=== PATIENT | female | born 1955 | race Caucasian/White ===

== ENCOUNTER 2017-03-22 14:37 | Outpatient (CLI) | payer OTHER ==
--- NOTE | 2017-03-22 15:17 | DIAGNOSTIC IMAGING REPORT ---
PROCEDURE: DEXA BONE DENSITY STUDY CLINICAL INDICATION: BREAST CA,OSTEOPENIA history of adult fractures, taking vitamin D and calcium supplementation. COMPARISON: 03/23/2016 FINDINGS: LUMBAR SPINE: Bone mineral density 0.982 g/cm2, T score -0.6, normal, change from previous 5.6 percent, significant LEFT HIP: Bone mineral density 0.998 g/cm2, T score 0.5, normal change from previous 1.4 percent LEFT FEMORAL NECK: Bone mineral density 0.680 g/cm2, T score -1.5, osteopenia, change from previous 00 percent FRACTURE RISK CALCULATION ( when applicable): 10-year fracture risk of a major osteoporotic fracture 14% and of a hip fracture 1.3% (fracture probability calculated for an untreated patient). (T score greater or equal to -1.0 to: NORMAL) (T score from -1.1 to -2.4: OSTEOPENIA) (T score ess than or equal to -2.5: OSTEOPOROSIS) IMPRESSION: 1. Interval increase in bone mineral density in the lumbar spine compared to the prior study. 2. Osteopenia of the left femoral neck results in mildly elevated hip fracture risk as described. 3. No significant change in left hip bone mineral density.
== END 2017-03-22 23:00 ==
LOC: XR SRH 14:37
DX: C50.919 Malignant neoplasm of unspecified site of unspecified female breast (principal); M85.88 Other specified disorders of bone density and structure, other site

== ENCOUNTER 2017-05-05 10:04 | Outpatient (CLI) | payer MEDICARE, OTHER ==
--- NOTE | 2017-05-05 14:02 | DIAGNOSTIC IMAGING REPORT ---
PROCEDURE: MG UNILAT SCREEN-LEFT W/CAD INDICATION: Left breast screening. Personal history of right breast cancer status post mastectomy. TECHNIQUE: Standard CC and MLO views of the left breast. Computer aided detection was used. COMPARISON: 04/22/2016, 04/18/2015, 03/08/2014, 03/10/2013 FINDINGS: Moderately dense fibroglandular tissue is present. No developing densities, areas of architectural distortion, or suspicious microcalcifications. IMPRESSION: 1. Stable left breast mammograms without radiographic evidence of malignancy. RESULT CODE: 1- Negative. A. A negative report should not delay biopsy if a dominant or clinically suspicious mass is present. 10-15% of cancers are not identified by x-ray. B. A negative report may reinforce clinical impression. C. Adenosis and dense breasts may obscure an underlying neoplasm. D. False positive reports average 6-10%. E.. A yearly screening mammogram is recommended. A reminder letter will be scheduled.
== END 2017-05-05 23:00 | disposition home or self-care (01) ==
LOC: MAM SRH 10:04
DX: Z12.31 Encounter for screening mammogram for malignant neoplasm of breast (principal)